=== PATIENT | male | born 1950 | race Caucasian/White ===

== ENCOUNTER 2016-11-23 18:32 | Emergency (ER) | payer OTHER ==
[~2016-11-23] VITALS: Ht 180.3 cm; Wt 134.1 kg
[~2016-11-23 18:32] MED LIST: DOCUSATE SODIU100 MG PO; GLUCOSAMINE-CH1 EA45 PO; OMEPRAZOLE20 MG PO; PHENTERMINE HCL15 MG PO; TYLENOL PM1 CAPLET PO
[2016-11-23] MEDS ORDERED: PERCOCET 5/31 TABLET PO (20:36)
[2016-11-23 21:27] VITALS: BP 130/98
== END 2016-11-23 21:28 | disposition home or self-care (01) ==
LOC: EME 18:32
PROC: 2W3LX1Z Immobilization of Right Lower Extremity using Splint (ICD-10-PCS; principal; 2016-11-23)
DX: S82.61XA Displaced fracture of lateral malleolus of right fibula, initial encounter for closed fracture (principal); X58.XXXA Exposure to other specified factors, initial encounter
CPT/HCPCS: 73610; 99281; 99284